=== PATIENT | male | born 1970 | race Caucasian/White ===

== ENCOUNTER 2017-12-21 23:38 | Emergency (ER) | payer OTHER ==
[2017-12-21 23:52] LABS: POC GLUCOSE 362 mg/dL (70-99)
[2017-12-22] MEDS: IV NORMAL SALINE 1000ML BAG 1,000 ML IV ×2 (00:15→00:24)
[2017-12-22 00:19] LABS: ADD MAN DIFF? NO; BASO % 1 % (0-3); EOS # 0.1 x10^3/uL (0.0-0.7); EOS % 2 % (0-3); HEMATOCRIT 43.6 % (39.0-53.0); HEMOGLOBIN 15.8 g/dL (13.0-17.5); LYMPH # 1.9 x10^3/uL (1.0-4.8); LYMPH % 34 % (24-48); MEAN CORPUSCULAR HEMOGLOBIN 32 pg (25-35); MEAN CORPUSCULAR HGB CONC 36 g/dL (31-37); MEAN CORPUSCULAR VOLUME 87 fL (79-100); MONO # 0.4 x10^3/uL (0.0-1.1); MONO % 7 % (0-9); NEUT # 3.3 x10^3uL (1.8-7.7); NEUT % 57 % (31-73); PLATELET COUNT 173 x10^3/uL (140-400); RED BLOOD COUNT 4.99 x10^6/uL (4.30-5.70); RED CELL DISTRIBUTION WIDTH 13.1 % (11.5-14.5); WHITE BLOOD COUNT 5.7 x10^3/uL (4.0-11.0)
[2017-12-22] MEDS: INSULIN REGULAR 100 UNIT/ML 3ML VIAL. IV (00:24)
[2017-12-22 00:29] LABS: ANION GAP 11 (6-14); BLOOD UREA NITROGEN 20 mg/dL (8-26); BUN/CREATININE RATIO 22 (6-20); CALCIUM 8.9 mg/dL (8.5-10.1); CARBON DIOXIDE 27 mmol/L (21-32); CHLORIDE 100 mmol/L (98-107); CREATININE 0.9 mg/dL (0.7-1.3); GFR 90.1; GLUCOSE 405 mg/dL (70-99); SODIUM 138 mmol/L (136-145)
[2017-12-22 00:34] LABS: ISTAT BE VENOUS 8 mmol/L (0-3); ISTAT HCO3 VEN 31 mmol/L (24-28); ISTAT PCO2 VEN 40 mmHg (41-51); ISTAT PO2 VEN 127 mmHg (20-40); ISTAT SAT O2 VEN 99 %; ISTAT TCO2 VEN 32 mmol/L (21-32); TOSPEC VEN
[2017-12-22 00:35] LABS: ALBUMIN 4.1 g/dL (3.4-5.0); ALBUMIN/GLOBULIN RATIO 1.3 (1.0-1.7); ALK PHOS 130 U/L (46-116); ALT (SGPT) 45 U/L (16-63); AST (SGOT) 17 U/L (15-37); LIPASE 90 U/L (73-393); TOTAL BILIRUBIN 0.5 mg/dL (0.2-1.0); TOTAL PROTEIN 7.2 g/dL (6.4-8.2)
[2017-12-22 00:39] LABS: TROPONINI < 0.017 ng/mL (0.000-0.055)
[2017-12-22 00:43] LABS: CKMB INDEX 1.4 % (0-4); CKMB MASS 2.3 ng/mL (0.0-3.6); CREATINE KINASE 168 U/L (39-308)
[2017-12-22 00:51] LABS: ACETONE NEG (NEG)
[2017-12-22 01:20] LABS: BILIRUBIN,URINE NEGATIVE (NEG); CLARITY,URINE CLEAR; COLOR,URINE YELLOW; GLUCOSE,URINE >=1000 mg/dL (NEG); NITRITE,URINE NEGATIVE (NEG); PROTEIN,URINE NEGATIVE (NEG-TRACE)
[2017-12-22 01:25] LABS: BACTERIA,URINE 0 /HPF (0-FEW); RBC,URINE 0 /HPF (0-2); SQUAMOUS EPITHELIAL CELL,UR OCC /LPF; WBC,URINE 0 /HPF (0-4)
[2017-12-22 01:42] LABS: POC GLUCOSE 289 mg/dL (70-99)
== END 2017-12-22 02:00 | disposition home or self-care (01) ==
LOC: ER 23:38
DX: E11.65 Type 2 diabetes mellitus with hyperglycemia (principal); I10 Essential (primary) hypertension
CPT/HCPCS: 36415; 71046; 80053; 81001; 82010; 82553; 82803; 82962; 83690; 84484; 85025; 93005; 96361; 96374; 99285-25; J1815; J7030